=== PATIENT | male | born 1970 | race Caucasian/White ===

== ENCOUNTER 2020-02-02 13:48 | Inpatient (IN) | payer BC ==
[~2020-02-02] VITALS: Ht 165.1 cm; Wt 90.7 kg
[2020-02-02 13:55] VITALS: Ht 165.1 cm; Wt 90.7 kg
[2020-02-02 14:33] LABS: BASOPHIL % 0.5 % (0-2); PLATELET COUNT 199 x10^3mcL (130-400); RED CELL DISTRIBUTION WIDTH 13.2 % (11.5-14.5)
[2020-02-02 15:04] LABS: CALCIUM 8.7 mg/dL (8.5-10.1); CARBON DIOXIDE 34.5 mmol/L (21-32); CHLORIDE SERUM 103 mmol/L (98-107); CREATININE SERUM 1.1 mg/dL (0.7-1.3); GFR1 > 60 mL/min; GLUCOSE SERUM 124 mg/dL (74-106); POTASSIUM SERUM 3.9 mmol/L (3.5-5.1); SODIUM SERUM 140 mmol/L (136-145)
[2020-02-02 15:08] LABS: ALBUMIN 3.5 g/dL (3.4-5.0); ALKALINE PHOSPHATASE 69 U/L (46-116); ALT/SGPT 38 U/L (16-63); AST/SGOT 30 U/L (15-37); BILIRUBIN TOTAL 0.6 mg/dL (0.20-1.00); TOTAL PROTEIN, SERUM 7.3 g/dL (6.4-8.2)
[2020-02-02] MEDS ORDERED: ZESTORETIC PO (19:41)
[2020-02-02 20:09] LABS: CHOLESTEROL/HDL RATIO 6.1
[2020-02-02 20:15] LABS: T3 TOTAL 1.39 ng/mL
[2020-02-02 20:18] LABS: FREE T4 0.79 ng/dL (0.76-1.46); FREE THYROXINE INDEX 1.9 ug/dL (1.4-4.5); T4(THYROXINE) 5.2 ug/dL (4.7-13.3)
[2020-02-02 21:48] VITALS: BP 134/83
[2020-02-02 22:33] VITALS: BP 134/83
[2020-02-03 04:51] VITALS: BP 121/82
[2020-02-03 07:05] LABS: CALCIUM 8.6 mg/dL (8.5-10.1); CHLORIDE SERUM 101 mmol/L (98-107); CREATININE SERUM 1.1 mg/dL (0.7-1.3); GFR1 > 60 mL/min; GLUCOSE SERUM 108 mg/dL (74-106); MAGNESIUM 2.1 mg/dL (1.8-2.4); PHOSPHOROUS 3.9 mg/dL (2.5-4.9); POTASSIUM SERUM 3.2 mmol/L (3.5-5.1); SODIUM SERUM 138 mmol/L (136-145)
[2020-02-03 07:34] LABS: BASOPHIL % 0.6 % (0-2); PLATELET COUNT 189 x10^3mcL (130-400); RED CELL DISTRIBUTION WIDTH 13.2 % (11.5-14.5)
[2020-02-03 08:32] VITALS: BP 122/89
[2020-02-03 12:52] VITALS: BP 132/97
[2020-02-03 14:50] LABS: AMPHETAMINE QUAL UR NONE DETECTED (See below)
[2020-02-03 17:15] VITALS: BP 151/89
[2020-02-03 20:45] VITALS: BP 123/86
[2020-02-04] VITALS (14 sets, daily range): BP systolic 118–141; BP diastolic 78–99
[2020-02-04 07:47] LABS: CALCIUM 8.9 mg/dL (8.5-10.1); CARBON DIOXIDE 34.2 mmol/L (21-32); CHLORIDE SERUM 102 mmol/L (98-107); CREATININE SERUM 1.1 mg/dL (0.7-1.3); GFR1 > 60 mL/min; GLUCOSE SERUM 103 mg/dL (74-106); MAGNESIUM 2.3 mg/dL (1.8-2.4); PHOSPHOROUS 3.7 mg/dL (2.5-4.9); SODIUM SERUM 139 mmol/L (136-145)
[2020-02-04 08:32] LABS: BASOPHIL % 0.6 % (0-2); PLATELET COUNT 192 x10^3mcL (130-400); RED CELL DISTRIBUTION WIDTH 13.2 % (11.5-14.5)
[2020-02-05 04:53] VITALS: BP 130/86
[2020-02-05 07:02] LABS: BASOPHIL % 0.3 % (0-2); PLATELET COUNT 193 x10^3mcL (130-400); RED CELL DISTRIBUTION WIDTH 13.4 % (11.5-14.5)
[2020-02-05 07:27] LABS: CALCIUM 8.7 mg/dL (8.5-10.1); CARBON DIOXIDE 27.5 mmol/L (21-32); CHLORIDE SERUM 101 mmol/L (98-107); CREATININE SERUM 1.1 mg/dL (0.7-1.3); GFR1 > 60 mL/min; GLUCOSE SERUM 109 mg/dL (74-106); MAGNESIUM 2.2 mg/dL (1.8-2.4); POTASSIUM SERUM 3.7 mmol/L (3.5-5.1); SODIUM SERUM 136 mmol/L (136-145)
[2020-02-05] MEDS ORDERED: METOPROLOL TART25 M1 PO (08:16)
[2020-02-05] MEDS ORDERED: ZES20 PO (08:16)
[2020-02-05] MEDS ORDERED: ATORVASTATIN CA40 M1 PO (08:16)
[2020-02-05] MEDS ORDERED: BRILINTA90 M1 PO (08:16)
[2020-02-05] MEDS ORDERED: ECO81 PO (08:17)
[2020-02-05 08:57] VITALS: BP 121/88
[2020-02-05 12:19] VITALS: BP 127/89
[2020-02-05 13:24] VITALS: BP 127/89
[2020-02-05 16:48] VITALS: BP 123/78
[2020-02-05 20:30] VITALS: BP 114/78
[2020-02-06 05:38] VITALS: BP 113/79
[2020-02-06 08:28] VITALS: BP 130/91
[2020-02-06] MEDS ORDERED: PLAVIX75 M1 PO ×2 (09:10→10:56)
== END 2020-02-06 10:22 | disposition home or self-care (01) | DRG 247 ==
LOC: ED 13:48 → DU 19:29
PROVIDERS: Emergency Medicine; Internal Medicine; ADMIT Internal Medicine; ATTEND Internal Medicine
PROC: 4A023N7 Measurement of Cardiac Sampling and Pressure, Left Heart, Percutaneous Approach (ICD-10-PCS; principal; 2020-02-04)
PROC: 027135Z Dilation of Coronary Artery, Two Arteries with Two Drug-eluting Intraluminal Devices, Percutaneous Approach (ICD-10-PCS; 2020-02-04)
PROC: B2111ZZ Fluoroscopy of Multiple Coronary Arteries using Low Osmolar Contrast (ICD-10-PCS; 2020-02-04)
PROC: 4A033BC Measurement of Arterial Pressure, Coronary, Percutaneous Approach (ICD-10-PCS; 2020-02-04)
DX: I21.4 Non-ST elevation (NSTEMI) myocardial infarction (principal); I10 Essential (primary) hypertension; I25.10 Atherosclerotic heart disease of native coronary artery without angina pectoris; G47.33 Obstructive sleep apnea (adult) (pediatric); Z79.899 Other long term (current) drug therapy
CPT/HCPCS: CLHCL; 84439; 93571; C1725; C1760; C1769; C1874; C1876; C1887; C1894; G0378; J1644; J1650; J2001; J2250; J3010; Q9967; U0003